=== PATIENT | female | born 1985 | race Caucasian/White ===

== ENCOUNTER 2019-06-12 05:59 | Outpatient (CLI) | payer OTHER ==
[~2019-06-12] VITALS: Ht 157.5 cm; Wt 78.5 kg
[~2019-06-12 05:59] MED LIST: ACETAMINOOPHEN-1 TAB PO; AMOX1TAB5 PO; NABUMETONE500 MG PO; PROTONIX40 MG PO; ULTRACET PO
== END 2019-06-12 06:00 | disposition home or self-care (01) ==
LOC: LAB 05:59 → O/R 06-15 06:22 → SURH 06-15 06:22 → O/R 06-15 07:30 → SURH 06-15 07:30 → EDSTATUS 06-15 07:30
DX: N93.8 Other specified abnormal uterine and vaginal bleeding (principal); Z00.00 Encounter for general adult medical examination without abnormal findings; I10 Essential (primary) hypertension; E03.8 Other specified hypothyroidism; E78.00 Pure hypercholesterolemia, unspecified; Z01.818 Encounter for other preprocedural examination